=== PATIENT | female | born 1995 | race Caucasian/White ===

== ENCOUNTER 2024-07-14 15:39 | Emergency (ER) | payer OTHER ==
[~2024-07-14] VITALS: Ht 167.6 cm; Wt 73.0 kg
[2024-07-14 15:41] VITALS: O2SAT 99
[2024-07-14] MEDS: IBUPROFEN 600MG TABLET PO ONE (16:57)
[2024-07-14 17:37] VITALS: BP 120/72; PULSE 85; RESP 16; TEMP 36.9; O2SAT 100
== END 2024-07-14 17:36 | disposition home or self-care (01) ==
LOC: ER 15:39
DX: S82.832A Other fracture of upper and lower end of left fibula, initial encounter for closed fracture (principal); Z65.3 Problems related to other legal circumstances; X58.XXXA Exposure to other specified factors, initial encounter; Y93.89 Activity, other specified; Y92.89 Other specified places as the place of occurrence of the external cause; Y99.8 Other external cause status
CPT/HCPCS: 29515; 73610; 99283